=== PATIENT | male | born 1990 | race Caucasian/White ===

== ENCOUNTER 2023-04-25 09:57 | Outpatient (CLI) | payer BC, SELFPAY ==
--- NOTE | 2023-04-25 10:12 | XR_ITS ---
FINAL REPORT CLINICAL HISTORY: Right foot pain COMPARISON: None FINDINGS: RIGHT FOOT: 4 views of the right foot were obtained. There is no acute fracture or dislocation. The joint spaces are intact. There is no soft tissue abnormality. IMPRESSION: No acute bony abnormality. Reviewed, Interpreted and Dictated by Ankit Chong III, MD Transcribed by Ceci De La Vega Authenticated and [facility]
--- NOTE | 2023-04-25 10:12 | XR_ITS ---
FINAL REPORT CLINICAL HISTORY: Left foot pain COMPARISON: None FINDINGS: LEFT FOOT: 4 views of the left foot were obtained. There is no acute fracture or dislocation. The joint spaces are intact. There is no soft tissue abnormality. IMPRESSION: No acute bony abnormality. Reviewed, Interpreted and Dictated by Ankit Chong III, MD Transcribed by Ceci De La Vega Authenticated and [facility]
== END 2023-04-25 23:59 ==
PROVIDERS: Visit Provider Podiatrist
DX: M79.671 Pain in right foot (principal); M79.672 Pain in left foot
CPT/HCPCS: 73630